=== PATIENT | male | born 1980 | race Caucasian/White ===

== ENCOUNTER 2020-03-12 20:52 | Emergency (ER) | payer MEDICAID ==
[~2020-03-12] VITALS: Ht 162.6 cm; Wt 78.5 kg
--- NOTE | 2020-03-12 21:00 | NUR ---
TO BED # 06 AMBULATORY
--- NOTE | 2020-03-12 21:30 | NUR ---
Dr. Aguilar examining patient.
--- NOTE | 2020-03-12 21:32 | NUR ---
39 y/o male presented to ED c/o left lower abd bulge - per pt he has had a bulge in the left lower region of abd x 3 years. Today pt came home from work and the bulge went back in and is no longer there. Pt denies any pain upon palpation of abd. Active bowel sounds in all quadrants. No observed bulge noted at this time. Pt resting in bed, locked and in lowest position, HOB elevated, side rail x1. VSS. No acute distress noted. pmh: denies nka
[2020-03-12 22:00] VITALS: BP 123/76
--- NOTE | 2020-03-12 22:00 | NUR ---
Patient discharged with v/s stable. Written and verbal after care instructions given and explained. Patient verbalized understanding. Ambulatory with steady gait. All questions addressed prior to discharge. Advised to follow up with PMD.
== END 2020-03-12 22:00 | disposition home or self-care (01) ==
LOC: MED 20:52
DX: K46.9 Unspecified abdominal hernia without obstruction or gangrene (principal); Z98.890 Other specified postprocedural states
CPT/HCPCS: 99281

== ENCOUNTER 2022-03-29 16:26 | Emergency (ER) | payer MEDICAID ==
[~2022-03-29] VITALS: Ht 162.6 cm; Wt 77.7 kg
[2022-03-29 16:36] VITALS: BP 131/75
[2022-03-29] MEDS ORDERED: ACET-10509 PO (18:40)
[2022-03-29] MEDS ORDERED: IBUP-2218 PO (18:40)
--- NOTE | 2022-03-29 20:26 | NUR ---
PER RTS, BOTH CALLED [facility] WITH NO ANSWER. CALLED IN LOBBY AND OUTSIDE, NO ANSWER.PT LEFT WITHOUT PAPERWORK
== END 2022-03-29 20:26 | disposition home or self-care (01) ==
LOC: MED 16:26
DX: S22.32XA Fracture of one rib, left side, initial encounter for closed fracture (principal); Z79.899 Other long term (current) drug therapy; W19.XXXA Unspecified fall, initial encounter; Y93.89 Activity, other specified; Y92.091 Bathroom in other non-institutional residence as the place of occurrence of the external cause; Y99.8 Other external cause status
CPT/HCPCS: 71101; 99283

== ENCOUNTER 2022-11-07 14:24 | Emergency (ER) | payer MEDICAID ==
[~2022-11-07] VITALS: Ht 157.5 cm; Wt 75.7 kg
[~2022-11-07 14:24] MED LIST: ACET-10509 PO; IBUP-2218 PO
[2022-11-07 14:36] VITALS: BP 124/74; PULSE 63; RESP 16; TEMP 97.4; O2SAT 98
[2022-11-07] MEDS ORDERED: IBUP-2213 PO (16:51)
[2022-11-07 17:00] VITALS: BP 124/74; PULSE 63; RESP 16; TEMP 97.4; O2SAT 98
== END 2022-11-07 17:01 | disposition home or self-care (01) ==
LOC: MED 14:24
DX: M79.671 Pain in right foot (principal); Z79.899 Other long term (current) drug therapy
CPT/HCPCS: 73630; 99283